=== PATIENT | male | born 1960 | race Caucasian/White ===

== ENCOUNTER → 2016-11-03 | Outpatient (REF) | payer OTHER ==
[2016-11-03 13:24] LABS: MEAN CORPUSCULAR HEMOGLOBIN 33.9 pg (27.0-33.0); MEAN CORPUSCULAR HGB CONC 35.5 g/dl (32.0-36.5); MEAN CORPUSCULAR VOLUME 95.6 fl (80.0-96.0); RED CELL DISTRIBUTION WIDTH 12.8 % (11.5-14.5); WHITE BLOOD COUNT 11.2 K/mm3 (4.0-10.0)
[2016-11-03 13:45] LABS: ALBUMIN 4.1 GM/DL (3.2-5.2); ALBUMIN/GLOBULIN RATIO 1.17 (1.00-1.93); ALKALINE PHOSPHATASE 76 U/L (45-117); ALT/SGPT 44 U/L (12-78); ANION GAP 8 MEQ/L (8-16); AST/SGOT 25 U/L (15-37); BILIRUBIN,TOTAL 0.6 MG/DL (0.2-1.0); BLOOD UREA NITROGEN 16 MG/DL (7-18); CARBON DIOXIDE LEVEL 26 MEQ/L (21-32); CHLORIDE LEVEL 104 MEQ/L (98-107); CHOLESTEROL LEVEL 132 MG/DL (<200); CREATININE FOR GFR 0.97 MG/DL (0.70-1.30); GLOMERULAR FILTRATION RATE > 60.0 (>56); GLUCOSE, FASTING 118 MG/DL (70-105); POTASSIUM SERUM 4.7 MEQ/L (3.5-5.1); SODIUM LEVEL 138 MEQ/L (136-145); TOTAL PROTEIN 7.6 GM/DL (6.4-8.2); TRIGLYCERIDES LEVEL 122 MG/DL (<150)
== END ==
LOC: M SFHCADAM 08:25
PROVIDERS: ATTEND Physician Assistant
DX: I10 Essential (primary) hypertension (principal); E11.65 Type 2 diabetes mellitus with hyperglycemia; E78.2 Mixed hyperlipidemia

== ENCOUNTER 2017-01-20 22:51 | Emergency (ER) | payer OTHER ==
[~2017-01-20] VITALS: Ht 177.8 cm; Wt 90.9 kg
[2017-01-20] MEDS ORDERED: LISI-538 (23:13)
[2017-01-20] MEDS ORDERED: DILT120T PO (23:13)
[2017-01-20] MEDS ORDERED: METF500T13 PO (23:13)
[2017-01-20] MEDS ORDERED: SIMV10TA2 PO (23:13)
[2017-01-20] MEDS ORDERED: ELIQ5TAB PO (23:13)
[2017-01-20 23:38] LABS: BASO # 0.1 K/mm3 (0.0-0.2); BASO % 0.8 % (0.0-1.0); EOS # 0.4 K/mm3 (0.0-0.50); EOS % 2.8 % (0.0-3.0); LARGE UNSTAINED CELL # 0.2 K/mm3 (0.0-0.4); LARGE UNSTAINED CELL % 1.7 % (0.0-4.0); LYMPH # 4.8 K/mm3 (1.5-4.5); LYMPH % 34.1 % (24.0-44.0); MEAN CORPUSCULAR HEMOGLOBIN 32.4 pg (27.0-33.0); MEAN CORPUSCULAR HGB CONC 34.9 g/dl (32.0-36.5); MEAN CORPUSCULAR VOLUME 92.8 fl (80.0-96.0); MONO # 0.7 K/mm3 (0.0-0.8); MONO % 5.3 % (0.0-5.0); NEUTROPHILS # 7.4 K/mm3 (1.8-7.7); NEUTROPHILS % 55.3 % (36.0-66.0); PLATELET COUNT, AUTOMATED 289 k/mm3 (150-450); RED CELL DISTRIBUTION WIDTH 12.7 % (11.5-14.5); WHITE BLOOD COUNT 13.3 K/mm3 (4.0-10.0)
[2017-01-21 00:05] LABS: ANION GAP 9 MEQ/L (8-16); BLOOD UREA NITROGEN 18 MG/DL (7-18); CARBON DIOXIDE LEVEL 26 MEQ/L (21-32); CHLORIDE LEVEL 106 MEQ/L (98-107); CREATININE FOR GFR 0.92 MG/DL (0.70-1.30); GLOMERULAR FILTRATION RATE > 60.0 (>56); GLUCOSE, FASTING 213 MG/DL (70-105); SODIUM LEVEL 141 MEQ/L (136-145); THYROXINE (T4) 10.5 UG/DL (4.5-12.0)
[2017-01-21 00:10] LABS: T UPTAKE 30 % (33-40)
[2017-01-21 00:33] VITALS: BP 138/97
[2017-01-21] MEDS ORDERED: LORazepam 2 MG/ML VIAL (J2060) IV STA (01:33)
[2017-01-21] MEDS ORDERED: DIGOXIN INJ 0.5 MG/2 ML AMP (J1160) IV STA (02:17)
[2017-01-21 03:41] VITALS: BP 108/59
--- NOTE | 2017-01-21 06:42 | ECGEPIP ---
Stationary ECG Study [facility] - ED Test Date: 2017-01-20 Pat Name: SANDRA GAY Department: Room: - Gender: M Charge Entry Specialist: ClarkB: 1960 Requested By: STACEY MARTINEZ Order Number: [id number] Reading MD: Teo Yousif Measurements Intervals [place] Rate: 137 P: [place]: 0 QRS: -51 QRSD: 115 T: 57 QT: 307 QTc: 464 Interpretive Statements ATRIAL FIBRILLATION WITH RAPID VENTRICULAR RESPONSE LEFT ANTERIOR FASCICULAR BLOCK LAD NONSPECIFIC ST T WAVE CHANGES CW 03/26/16 - RATE INCREASED RHYTHM CHANGE NONSPECIFIC ST T WAVE CHANGES CLINICAL CORRELATION Electronically Signed On 01-21-2017 6:42:11 EDT by Teo Yousif
--- NOTE | 2017-01-21 06:43 | ECGEPIP ---
Stationary ECG Study [facility] - ED Test Date: 2017-01-21 Pat Name: SANDRA GAY Department: Room: - Gender: M Crm Developer: sterling : 1960 Requested By: STACEY MARTINEZ Order Number: [id number] Reading MD: Teo Yousif Measurements Intervals [place] Rate: 59 P: 61 [place]: 170 QRS: -34 QRSD: 118 T: 54 QT: 394 QTc: 393 Interpretive Statements SINUS BRADYCARDIA WITH OCCASIONAL SUPRAVENTRICULAR PREMATURE COMPLEXES MARKED LEFT AXIS DEVIATION MODERATE INTRAVENTRICULAR CONDUCTION DELAY NONSPECIFIC ST T WAVE CHANGES CW 01/20/17 - RATE DECREASED NOW SINUS BRADYCARDIA Electronically Signed On 01-21-2017 6:42:45 EDT by Teo Yousif
== END 2017-01-21 03:57 | disposition home or self-care (01) ==
LOC: M ED 22:51
DX: I48.91 Unspecified atrial fibrillation (principal); I10 Essential (primary) hypertension; E11.9 Type 2 diabetes mellitus without complications; E78.5 Hyperlipidemia, unspecified; F17.200 Nicotine dependence, unspecified, uncomplicated; Z79.01 Long term (current) use of anticoagulants; Z79.899 Other long term (current) drug therapy
CPT/HCPCS: 36415; 80048; 82550; 82553; 84436; 84443; 84479; 85025; 93000; 96374; 96375; 99284; J1160; J2060

== ENCOUNTER 2017-01-23 11:09 | Emergency (ER) | payer OTHER ==
[~2017-01-23] VITALS: Ht 177.8 cm; Wt 89.6 kg
[~2017-01-23 11:09] MED LIST: DILT120T PO; ELIQ5TAB PO; LISI-538; METF500T13 PO; SIMV10TA2 PO
[2017-01-23 11:10] VITALS: BP 127/75
[2017-01-23 11:54] LABS: MEAN CORPUSCULAR HEMOGLOBIN 32.5 pg (27.0-33.0); MEAN CORPUSCULAR HGB CONC 35.3 g/dl (32.0-36.5); MEAN CORPUSCULAR VOLUME 92.2 fl (80.0-96.0); RED CELL DISTRIBUTION WIDTH 12.4 % (11.5-14.5); WHITE BLOOD COUNT 11.1 K/mm3 (4.0-10.0)
[2017-01-23 12:38] LABS: ANION GAP 6 MEQ/L (8-16); BLOOD UREA NITROGEN 16 MG/DL (7-18); CALCIUM LEVEL 8.7 MG/DL (8.5-10.1); CARBON DIOXIDE LEVEL 27 MEQ/L (21-32); CHLORIDE LEVEL 106 MEQ/L (98-107); GLOMERULAR FILTRATION RATE > 60.0 (>56); GLUCOSE, FASTING 185 MG/DL (70-105); MAGNESIUM LEVEL 2.1 MG/DL (1.8-2.4); POTASSIUM SERUM 4.4 MEQ/L (3.5-5.1); SODIUM LEVEL 139 MEQ/L (136-145); T UPTAKE 34 % (33-40)
--- NOTE | 2017-01-23 21:20 | ECGEPIP ---
Stationary ECG Study [facility] - ED Test Date: 2017-01-23 Pat Name: SANDRA GAY Department: Room: - Gender: M Chute Man: mandeep : 1960 Requested By: Marie Barrientos Order Number: [id number] Reading MD: Marie Barrientos Measurements Intervals [place] Rate: 57 P: 63 MN: 174 QRS: -24 QRSD: 117 T: 57 QT: 438 QTc: 430 Interpretive Statements SINUS BRADYCARDIA BORDERLINE LEFT AXIS DEVIATION MODERATE INTRAVENTRICULAR CONDUCTION DELAY NONSPECIFIC T-WAVE ABNORMALITY Electronically Signed On 01-23-2017 21:20:33 EDT by Marie Barrientos
== END 2017-01-23 13:26 | disposition left against medical advice (07) ==
LOC: M ED 11:09
DX: I48.0 Paroxysmal atrial fibrillation (principal); R00.1 Bradycardia, unspecified; E11.9 Type 2 diabetes mellitus without complications; F17.210 Nicotine dependence, cigarettes, uncomplicated

== ENCOUNTER 2017-02-03 21:24 | Observation (INO) | payer OTHER ==
[~2017-02-03] VITALS: Ht 177.8 cm; Wt 89.8 kg
[~2017-02-03 21:24] MED LIST changes: +FLECAINIDE 50MG TABLET PO SCH; +LISINOPRIL 10 MG TAB PO SCH; +SIMVASTATIN 10 MG TAB PO SCH
[2017-02-03] MEDS ORDERED: FLEC50TA PO (21:35)
[2017-02-03] MEDS ORDERED: NS 1,000 ML IV ONE (22:00)
[2017-02-03 22:14] LABS: BASO # 0.1 K/mm3 (0.0-0.2); BASO % 0.6 % (0.0-1.0); EOS # 0.4 K/mm3 (0.0-0.50); EOS % 3.1 % (0.0-3.0); LARGE UNSTAINED CELL # 0.3 K/mm3 (0.0-0.4); LYMPH # 4.6 K/mm3 (1.5-4.5); LYMPH % 32.5 % (24.0-44.0); MEAN CORPUSCULAR HEMOGLOBIN 32.8 pg (27.0-33.0); MEAN CORPUSCULAR HGB CONC 35.6 g/dl (32.0-36.5); MEAN CORPUSCULAR VOLUME 92.1 fl (80.0-96.0); MONO # 0.8 K/mm3 (0.0-0.8); MONO % 5.4 % (0.0-5.0); NEUTROPHILS % 56.4 % (36.0-66.0); PLATELET COUNT, AUTOMATED 270 k/mm3 (150-450); RED CELL DISTRIBUTION WIDTH 12.4 % (11.5-14.5); WHITE BLOOD COUNT 14.2 K/mm3 (4.0-10.0)
[2017-02-03 22:20] LABS: INR 1.03
[2017-02-03 22:41] LABS: ALBUMIN 3.8 GM/DL (3.2-5.2); ALBUMIN/GLOBULIN RATIO 1.19 (1.00-1.93); ALKALINE PHOSPHATASE 79 U/L (45-117); ALT/SGPT 35 U/L (12-78); ANION GAP 11 MEQ/L (8-16); AST/SGOT 20 U/L (15-37); BILIRUBIN,DIRECT 0.1 MG/DL (0.0-0.2); BILIRUBIN,TOTAL 0.4 MG/DL (0.2-1.0); BLOOD UREA NITROGEN 16 MG/DL (7-18); CALCIUM LEVEL 8.5 MG/DL (8.5-10.1); CARBON DIOXIDE LEVEL 24 MEQ/L (21-32); CHLORIDE LEVEL 107 MEQ/L (98-107); CREATININE FOR GFR 0.89 MG/DL (0.70-1.30); GLOMERULAR FILTRATION RATE > 60.0 (>56); GLUCOSE, FASTING 177 MG/DL (70-105); POTASSIUM SERUM 3.8 MEQ/L (3.5-5.1); SODIUM LEVEL 142 MEQ/L (136-145)
[2017-02-03] MEDS ORDERED: NITROGLYCERIN 0.4 MG SUBL TABLET SL PRN (22:45)
[2017-02-03] MEDS ORDERED: FLECAINIDE 50MG TABLET PO ONE (23:00)
[2017-02-03] MEDS ORDERED: SUCRALFATE 1 GM TAB PO ONE (23:30)
[2017-02-03] MEDS ORDERED: VENL75CA47 PO (23:48)
[2017-02-03] MEDS ORDERED: LISI10TA4 PO (23:48)
[2017-02-04] MEDS ORDERED: GLUCAGON FOR INJ 1 MG VIAL (J1610) SC PRN (01:45)
[2017-02-04] MEDS ORDERED: DEXTROSE 50% 50 ML SYRINGE IV PRN (01:45)
[2017-02-04] MEDS ORDERED: GLUCOSE 4 GM CHEW TABLET PO PRN (01:45)
[2017-02-04 03:30] VITALS: BP 99/58
[2017-02-04 07:23] LABS: MEAN CORPUSCULAR HEMOGLOBIN 32.9 pg (27.0-33.0); MEAN CORPUSCULAR HGB CONC 35.8 g/dl (32.0-36.5); MEAN CORPUSCULAR VOLUME 91.9 fl (80.0-96.0); RED CELL DISTRIBUTION WIDTH 12.5 % (11.5-14.5); WHITE BLOOD COUNT 11.3 K/mm3 (4.0-10.0)
[2017-02-04] MEDS ORDERED: HumaLOG INSULIN (NovoLOG) PER UNIT SC SCH ×2 (07:30→21:00)
[2017-02-04 07:34] LABS: ANION GAP 10 MEQ/L (8-16); BLOOD UREA NITROGEN 12 MG/DL (7-18); CALCIUM LEVEL 8.2 MG/DL (8.5-10.1); CARBON DIOXIDE LEVEL 24 MEQ/L (21-32); CHLORIDE LEVEL 110 MEQ/L (98-107); CREATININE FOR GFR 0.82 MG/DL (0.70-1.30); GLOMERULAR FILTRATION RATE > 60.0 (>56); GLUCOSE, FASTING 143 MG/DL (70-105); MAGNESIUM LEVEL 2.3 MG/DL (1.8-2.4); POTASSIUM SERUM 4.1 MEQ/L (3.5-5.1); SODIUM LEVEL 144 MEQ/L (136-145)
[2017-02-04 08:17] VITALS: BP 121/69
[2017-02-04] MEDS ORDERED: PANTOPRAZOLE 40MG TAB (PROTONIX) PO SCH (09:00)
[2017-02-04] MEDS ORDERED: APIXABAN 5 MG TAB (ELIQUIS) PO SCH (09:00)
[2017-02-04] MEDS ORDERED: FLECAINIDE 50MG TABLET PO SCH (09:00)
[2017-02-04] MEDS ORDERED: VENLAFAXINE **XR** 75MG CAPSULE PO SCH (09:00)
--- NOTE | 2017-02-04 09:06 | REP ---
Clinical: chest pain. Comparison: 03/26/2016. Findings: The mediastinum and cardiac silhouette are stable and within normal limits for portable technique. The lung ingram are clear without acute consolidation, effusion, or pneumothorax. Skeletal structures are intact. Impression: No acute cardiopulmonary process appreciated. Signed by Tiago Pacheco MD 02/04/2017 07:53 A
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
[2017-02-04 09:13] VITALS: BP 121/69
--- NOTE | 2017-02-04 10:22 | ECGEPIP ---
Stationary ECG Study [facility] - ED Test Date: 2017-02-03 Pat Name: SANDRA GAY Department: Room: [place] [address] Gender: M State Game Protector: ClarkB: 1960 Requested By: KATRINA Gannon Order Number: [id number] Reading MD: Marie Barrientos Measurements Intervals [place] Rate: 140 P: [place]: 0 QRS: -51 QRSD: 121 T: 66 QT: 317 QTc: 484 Interpretive Statements ATRIAL FIBRILLATION WITH RAPID VENTRICULAR RESPONSE LEFT ANTERIOR FASCICULAR BLOCK MODERATE ST DEPRESSION PRIOR SINUS 57 01/23/17 Electronically Signed On 02-04-2017 10:22:30 EDT by Marie Barrientos
[2017-02-04] MEDS ORDERED: FLECAINIDE 50MG TABLET PO ONE (10:30)
[2017-02-04] MEDS ORDERED: FLEC50TA PO (10:40)
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
--- NOTE | 2017-02-04 11:31 | DS.PDOC ---
Discharge Summary General Date of Admission Feb 03, 2017 at 21:25 Date of Discharge 02/04/2017 Discharge Summary DISCHARGE SUMMARY DATE OF ADMISSION: 02/03/2017 DATE OF DISCHARGE: 02/04/2017 PRIMARY CARE PHYSICIAN: MERVIN Ariza DISCHARGE DIAGNOS(E)S: A. fib with RVR HPI & HOSPITAL COURSE: 56-year-old male with diabetes mellitus, paroxysmal A. fib, GERD who presented to the emergency department with uncontrolled heart rate. There is some confusion about if the patient did or did not stop his flecainide, but either way, he was not taking his flecainide appropriately. Per the H&P, the patient had not taken it yesterday after reading the side effects and becoming concerned. However, the report that he gave Dr. Orellana, was that he was still taking his old dose of flecainide 50 mg by mouth twice a day, but had failed to increase it to 100 mg by mouth twice a day as he had been instructed by Dr. Dubon one week ago. Upon admission, he was restarted on his home medications. Initially, this morning, the patient was frustrated with the fact that he continued to have episodes of A. fib, and felt like the doctors in this area were not managing him appropriately. He expressed a desire to leave [place] and go to [place] for care, and told me that he understood that if his heart rhythm would become abnormal again, there is the possibility that he would not be able to reach medical care in time and could . However, he later changed his mind and decided to wait for the cup trimming machine operator to evaluate him. Dr. Orellana evaluated him, and felt like since he had converted to sinus rhythm overnight, he was safe to go home, and continue taking his regular medicines, including the increased dose of flecainide that he was instructed to start one week ago. The patient also evidently has an event recorder at home, which has not been turned in yet. Dr. Orellana has asked him to turn it into the office tomorrow. Dr. Orellana plans to speak with Dr. Dubon about possibly referring the patient to electrophysiology for ablation but feels that at this time the patient is safe to be discharged home. PHYSICAL EXAMINATION ON DISCHARGE: VITAL SIGNS: Vital Signs Date Time Temp Pulse Resp B/P (MAP) Pulse Ox O2 Delivery O2 Flow Rate FiO2 02/04/17 09:13 66 121/69 02/04/17 08:17 96.8 18 97 Room Air GENERAL: Awake, alert, no acute distress CARDIOVASCULAR EXAMINATION: Regular rate and rhythm, with no rubs, gallops, or murmur. RESPIRATORY EXAMINATION: Clear to auscultation bilaterally with no wheezes, rales, or rhonchi. ABDOMINAL EXAMINATION: Soft, nontender, nondistended. Bowel sounds present. EXTREMITIES: No clubbing or edema noted. 2+ pulses in the radial bilaterally. NEURO: AAOx3, normal speech DISPOSITION: Home DISCHARGE INSTRUCTIONS: Follow-up with Dr. Dubon in 1-2 weeks Follow-up PCP within the week. Return the event recorder to Dr. Dubon's office tomorrow. If symptoms return, or if you experience worsening of your symptoms, please call your doctor or return to the emergency department. ITEMS THAT NEED OUTPATIENT FOLLOWUP: None Patient was seen and examined by me on the day of discharge, and I spent a total time of greater than 30 minutes on this discharge between evaluating the patient, discussing the patient's options including leaving AMA with the patient , and discussing the case with Dr. Orellana. Vital Signs/I&Os Vital Signs Date Time Temp Pulse Resp B/P (MAP) Pulse Ox O2 Delivery O2 Flow Rate FiO2 02/04/17 09:13 66 121/69 02/04/17 08:17 96.8 18 97 Room Air I&O- Last 24 Hours up to 6 AM 02/04/17 05:59 Intake Total 1000 ml Output Total 2100 ml Balance -1100 ml Laboratory Data Labs 24H Laboratory Tests 2 02/03/17 22:01: White Blood Count 14.2H, Red Blood Count 4.52, Hemoglobin 14.8, Hematocrit 41.6L , Mean Corpuscular Volume 92.1, Mean Corpuscular Hemoglobin 32.8, Mean Corpuscular Hemoglobin Concent 35.6, Red Cell Distribution Width 12.4, Platelet Count 270, Neutrophils (%) (Auto) 56.4, Lymphocytes (%) (Auto) 32.5, Monocytes ( %) (Auto) 5.4H, Eosinophils (%) (Auto) 3.1H, Basophils (%) (Auto) 0.6, Neutrophils # (Auto) 8.0H, Lymphocytes # (Auto) 4.6H, Monocytes # (Auto) 0.8, Eosinophils # (Auto) 0.4, Basophils # (Auto) 0.1, Large Unclassified Cells % 2.0 , Large Unclassified Cells # 0.3, Prothrombin Time 13.6, Prothromb Time International Ratio 1.03, Activated Partial Thromboplast Time 34.0, Anion Gap 11 , Glomerular Filtration Rate > 60.0, Calcium Level 8.5, Aspartate Amino Transf ( AST/SGOT) 20, Alanine Aminotransferase (ALT/SGPT) 35, Alkaline Phosphatase 79, Total Bilirubin 0.4, Direct Bilirubin 0.1, Total Creatine Kinase 205, Creatine Kinase MB 2.9, Creatine Kinase MB Relative Index 1.41, Troponin I < 0.02, B- Type Natriuretic Peptide 28.2, Total Protein 7.0, Albumin 3.8, Albumin/Globulin Ratio 1.19, Lipase 149 02/04/17 07:05: Anion Gap 10, Glomerular Filtration Rate > 60.0, Calcium Level 8.2L, Total Creatine Kinase 148, Creatine Kinase MB 2.3, Creatine Kinase MB Relative Index 1.55, Troponin I < 0.02, Estimated Mean Plasma Glucose 157H, Hemoglobin A1c 7.1H , Blood Urea Nitrogen 12, Creatinine 0.82, Sodium Level 144, Potassium Level 4.1 , Chloride Level 110H, Carbon Dioxide Level 24, Magnesium Level 2.3 CBC/BMP Laboratory Tests 02/03/17 22:01 Red Blood Count 4.52, Mean Corpuscular Volume 92.1, Mean Corpuscular Hemoglobin 32.8, Mean Corpuscular Hemoglobin Concent 35.6, Red Cell Distribution Width 12.4 , Neutrophils (%) (Auto) 56.4, Lymphocytes (%) (Auto) 32.5, Monocytes (%) (Auto ) 5.4 H, Eosinophils (%) (Auto) 3.1 H, Basophils (%) (Auto) 0.6, Neutrophils # ( Auto) 8.0 H, Lymphocytes # (Auto) 4.6 H, Monocytes # (Auto) 0.8, Eosinophils # ( Auto) 0.4, Basophils # (Auto) 0.1 02/04/17 07:05 Red Blood Count 4.64, Mean Corpuscular Volume 91.9, Mean Corpuscular Hemoglobin 32.9, Mean Corpuscular Hemoglobin Concent 35.8, Red Cell Distribution Width 12.5 , Calcium Level 8.2 L, Total Creatine Kinase 148 Discharge Medications Scheduled Apixaban Base (Eliquis) 5 Mg Tab, 5 MG PO BID, (Reported) Diltiazem HCl (Diltiazem HCl) 120 Mg Tab, 120 MG PO BID, (Reported) Flecainide Acetate (Flecainide Acetate) 50 Mg Tab, 100 MG PO BID Lisinopril (Lisinopril) 10 Mg Tab, 10 MG PO QHS, (Reported) Metformin Hydrochloride (Metformin HCl) 500 Mg Tab, 500 MG PO BID, (Reported) Simvastatin (Simvastatin) 10 Mg Tab, 10 MG PO QHS, (Reported) Venlafaxine HCl (Venlafaxine HCl ER) 75 Mg Capcr, 75 MG PO DAILY, (Reported) Allergies Coded Allergies: No Known Allergies (Unverified , 01/20/17) THERESE BOYD Feb 04, 2017 11:31
== END 2017-02-04 11:18 | disposition home or self-care (01) ==
LOC: M ED 21:24 → M ED INP 21:25
PROVIDERS: ADMIT Internal Medicine; ATTEND Hospitalist
DX: I48.0 Paroxysmal atrial fibrillation (principal); E11.9 Type 2 diabetes mellitus without complications; I10 Essential (primary) hypertension; K21.9 Gastro-esophageal reflux disease without esophagitis; F17.210 Nicotine dependence, cigarettes, uncomplicated; Z79.899 Other long term (current) drug therapy

== ENCOUNTER → 2017-04-25 | Outpatient (CLI) | payer OTHER ==
[~2017-04-25] MED LIST changes: +FLEC50TA PO; -FLECAINIDE 50MG TABLET PO SCH; +LISI10TA4 PO; -LISINOPRIL 10 MG TAB PO SCH; -SIMVASTATIN 10 MG TAB PO SCH; +VENL75CA47 PO
--- NOTE | 2017-04-27 14:43 | SLEEPHOME ---
DATE OF STUDY: 04/25/2017 ORDERED BY: Petra Luna Diagnostic home sleep testing was performed due to concern for the obstructive sleep apnea syndrome in this patient with a history of excessive somnolence and nonrestorative sleep who has comorbidities of atrial fibrillation and hypertension. For testing, a NOX-T3 respiratory monitoring device was used. Continuous record was made of pulse, oxygen saturation, air flow, chest and abdominal strain, and body position. 10 hours and 59 minutes of data were reviewed. There were 7 hours and 58 minutes marked as time in bed. During the interval marked time in bed, there were 75 respiratory events identified of 10 seconds in duration or greater for a respiratory event index of 9.4. The events were primarily obstructive. Baseline pulse rate 65. Pulse rate ranged 52 to 93. Baseline saturation of 89%. Lowest oxygen saturation 83%. Testing was performed in both the supine and nonsupine positions. IMPRESSION: Abnormal home sleep testing with repetitive respiratory events and oxygen desaturations to 83% with a respiratory event index of 9.4 is consistent with the obstructive sleep apnea syndrome. RECOMMENDATION: The patient should be encouraged to undergo formal sleep evaluation and in-laboratory pressure titration.
== END ==
LOC: M SLEEP HO 13:11
PROVIDERS: ATTEND Nurse Practitioner Adult Health
DX: G47.30 Sleep apnea, unspecified (principal)

== ENCOUNTER 2018-01-06 07:05 | Emergency (ER) | payer OTHER ==
[2018-01-06] MEDS ORDERED: NITROGLYCERIN 0.4 MG SUBL TABLET SL (07:45)
[2018-01-06 07:46] LABS: BASO # 0.1 10^3/uL (0.0-0.2); BASO % 0.7 % (0.0-1.0); EOS # 0.3 10^3/uL (0.0-0.50); EOS % 2.1 % (0.0-3.0); HEMATOCRIT 44.6 % (42.0-52.0); IMMATURE GRANULOCYTE % 0.4 % (0-3.0); LYMPH # 2.9 10^3/uL (1.5-4.5); MEAN CORPUSCULAR HEMOGLOBIN 31.8 pg (27.0-33.0); MEAN CORPUSCULAR HGB CONC 33.6 g/dl (32.0-36.5); MEAN CORPUSCULAR VOLUME 94.5 fl (80.0-96.0); MONO % 8.6 % (0.0-5.0); NEUTROPHILS # 7.8 10^3/uL (1.8-7.7); NEUTROPHILS % 64.2 % (36.0-66.0); PLATELET COUNT, AUTOMATED 245 10^3/uL (150-450); RED BLOOD COUNT 4.72 10^6/uL (4.30-6.10); RED CELL DISTRIBUTION WIDTH 12.7 % (11.5-14.5); WHITE BLOOD COUNT 12.1 10^3/uL (4.0-10.0)
[2018-01-06 07:57] LABS: INR 0.91; PROTHROMBIN TIME 12.4 SECONDS (12.1-14.4)
[2018-01-06 08:20] LABS: ANION GAP 7 MEQ/L (8-16); BLOOD UREA NITROGEN 13 MG/DL (7-18); CALCIUM LEVEL 8.3 MG/DL (8.5-10.1); CARBON DIOXIDE LEVEL 28 MEQ/L (21-32); CHLORIDE LEVEL 106 MEQ/L (98-107); CK-MB VALUE MASS 2.9 NG/ML (<3.6); CPK CREATINE PHOSPHOKINASE 177 U/L (39-308); CREATININE FOR GFR 0.94 MG/DL (0.70-1.30); GLOMERULAR FILTRATION RATE > 60.0 (>56); GLUCOSE, FASTING 153 MG/DL (70-100); MB/CK RELATIVE INDEX 1.63 (< OR =4); POTASSIUM SERUM 4.1 MEQ/L (3.5-5.1); SODIUM LEVEL 141 MEQ/L (136-145); TROPONIN I < 0.02 NG/ML (< 0.10)
[2018-01-06] MEDS ORDERED: MORPHINE 2 MG/ML 1ML SYRINGE (J2270) As Ordered (08:27)
[2018-01-06] MEDS: FLECAINIDE 50MG TABLET PO (08:36)
[2018-01-06] MEDS: MORPHINE 2 MG/ML 1ML SYRINGE (J2270) IV ×2 (08:39→09:10)
[2018-01-06] MEDS: ONDANSETRON 4MG/2ML VIAL (J2405) IV (08:45)
[2018-01-06] MEDS: NS 1,000 ML IV (09:14)
[2018-01-06] MEDS ORDERED: ISOVUE-370 76% 100ML VIAL (Q9967) As Ordered (09:15)
[2018-01-06] MEDS: GI COCKTAIL 50ML BTL(HYOSCYAMINE/MAALOX/LIDOCAINE VISCOUS)(1:3:1) PO (11:30)
[2018-01-06] MEDS: APIXABAN 5 MG TAB (ELIQUIS) PO (11:45)
[2018-01-06 13:21] LABS: CK-MB VALUE MASS 2.9 NG/ML (<3.6); CPK CREATINE PHOSPHOKINASE 156 U/L (39-308); MB/CK RELATIVE INDEX 1.85 (< OR =4); TROPONIN I < 0.02 NG/ML (< 0.10)
[2018-01-06 13:41] LABS: BEDSIDE GLUCOSE 166 MG/DL (70-105)
== END 2018-01-06 14:36 | disposition home or self-care (01) ==
LOC: M ED 07:05
DX: M54.2 Cervicalgia (principal); R07.9 Chest pain, unspecified; I44.4 Left anterior fascicular block; I48.91 Unspecified atrial fibrillation; I10 Essential (primary) hypertension; E78.5 Hyperlipidemia, unspecified; K21.9 Gastro-esophageal reflux disease without esophagitis; F41.9 Anxiety disorder, unspecified; Z98.61 Coronary angioplasty status; Z79.01 Long term (current) use of anticoagulants; Z79.899 Other long term (current) drug therapy
CPT/HCPCS: J2405

== ENCOUNTER → 2018-03-31 | Outpatient (REF) | payer OTHER ==
[2018-03-31 18:02] LABS: HEMATOCRIT 47.4 % (42.0-52.0); HEMOGLOBIN 15.1 g/dl (13.5-17.5); MEAN CORPUSCULAR HEMOGLOBIN 31.1 pg (27.0-33.0); MEAN CORPUSCULAR HGB CONC 31.9 g/dl (32.0-36.5); MEAN CORPUSCULAR VOLUME 97.5 fl (80.0-96.0); RED BLOOD COUNT 4.86 10^6/uL (4.30-6.10)
[2018-03-31 18:03] LABS: BLOOD UREA NITROGEN 14 MG/DL (7-18); CHLORIDE LEVEL 101 MEQ/L (98-107); CREATININE FOR GFR 0.99 MG/DL (0.70-1.30); GLOMERULAR FILTRATION RATE > 60.0 (>56); GLUCOSE, FASTING 192 MG/DL (70-100); PLATELET COUNT, AUTOMATED 241 10^3/uL (150-450); POTASSIUM SERUM 5.2 MEQ/L (3.5-5.1); SODIUM LEVEL 137 MEQ/L (136-145)
[2018-03-31 18:04] LABS: ANION GAP 7 MEQ/L (8-16); CALCIUM LEVEL 8.7 MG/DL (8.5-10.1); CARBON DIOXIDE LEVEL 29 MEQ/L (21-32)
== END ==
LOC: M LABDRWAD 13:21
DX: I48.1 Persistent atrial fibrillation (principal)

== ENCOUNTER → 2018-03-31 | Outpatient (REF) | payer OTHER ==
[2018-03-31 17:27] LABS: BASO # 0.1 10^3/uL (0.0-0.2); BASO % 0.7 % (0.0-1.0); EOS # 0.3 10^3/uL (0.0-0.50); EOS % 2.7 % (0.0-3.0); HEMATOCRIT 47.4 % (42.0-52.0); HEMOGLOBIN 15.1 g/dl (13.5-17.5); IMMATURE GRANULOCYTE % 0.2 % (0-3.0); LYMPH # 3.7 10^3/uL (1.5-4.5); LYMPH % 30.5 % (24.0-44.0); MEAN CORPUSCULAR HEMOGLOBIN 31.1 pg (27.0-33.0); MEAN CORPUSCULAR HGB CONC 31.9 g/dl (32.0-36.5); MEAN CORPUSCULAR VOLUME 97.5 fl (80.0-96.0); MONO # 1.1 10^3/uL (0.0-0.8); MONO % 8.9 % (0.0-5.0); NEUTROPHILS # 6.8 10^3/uL (1.8-7.7); PLATELET COUNT, AUTOMATED 241 10^3/uL (150-450); RED BLOOD COUNT 4.86 10^6/uL (4.30-6.10)
[2018-03-31 17:46] LABS: ALBUMIN 3.9 GM/DL (3.2-5.2); ALBUMIN/GLOBULIN RATIO 1.18 (1.00-1.93); ALKALINE PHOSPHATASE 81 U/L (45-117); ALT/SGPT 49 U/L (12-78); ANION GAP 7 MEQ/L (8-16); AST/SGOT 27 U/L (7-37); BILIRUBIN,TOTAL 0.4 MG/DL (0.2-1.0); BLOOD UREA NITROGEN 14 MG/DL (7-18); CALCIUM LEVEL 8.7 MG/DL (8.5-10.1); CARBON DIOXIDE LEVEL 29 MEQ/L (21-32); CHLORIDE LEVEL 101 MEQ/L (98-107); CHOLESTEROL LEVEL 148 MG/DL (<200); CHOLESTEROL RISK RATIO 3.894 (<5); CREATININE FOR GFR 0.99 MG/DL (0.70-1.30); FREE T4 1.05 NG/DL (0.76-1.46); GLOMERULAR FILTRATION RATE > 60.0 (>56); GLUCOSE, FASTING 192 MG/DL (70-100); HDL CHOLESTEROL 38 MG/DL (>40); LDL CHOLESTEROL 70 MG/DL (<100); NON-HDL-C 110 MG/DL; POTASSIUM SERUM 5.2 MEQ/L (3.5-5.1); SODIUM LEVEL 137 MEQ/L (136-145); TOTAL PROTEIN 7.2 GM/DL (6.4-8.2); TRIGLYCERIDES LEVEL 199 MG/DL (<150)
[2018-03-31 17:49] LABS: ESTIMATED AVERAGE GLUCOSE 177 MG/DL (60-110); HEMOGLOBIN A1c 7.8 %
[2018-03-31 18:17] LABS: MALB URINE SIEMENS 27.9 MG/L
[2018-03-31 18:19] LABS: MAU/CREAT RATIO 21.6 MCG/MG (0.0-30.0)
== END ==
LOC: M SFHCADAM 08:34
DX: I48.0 Paroxysmal atrial fibrillation (principal); E11.65 Type 2 diabetes mellitus with hyperglycemia; E78.2 Mixed hyperlipidemia; I10 Essential (primary) hypertension

== ENCOUNTER → 2018-04-23 | Outpatient (REF) | payer OTHER | LOC: M ADAMS 14:17 | DX: M51.36 Other intervertebral disc degeneration, lumbar region (principal) | CPT/HCPCS: 72110 ==

== ENCOUNTER → 2018-05-08 | Outpatient (CLI) | payer OTHER ==
[~2018-05-08] MED LIST changes: +FLEC50HA PO; -FLEC50TA PO
--- NOTE | 2018-05-08 19:55 | REP ---
PET/CT: History: 15 mm noncalcified pulmonary nodule in the right lower lobe and 6 mm noncalcified pulmonary nodule in the left lower lobe. Comparisons: Comparison CT study done at [facility] dated April 05, 2018. TECHNIQUE: 1 hour 7 minutes following the intravenous injection of a 8.0 mCi dose of F-18 FDG, three-dimensional PET scintigraphy is acquired from the skull base to the proximal thighs. Triplanar noncontrast CT scanning is acquired through the same anatomic range for attenuation correction, and image registration with scan parameters optimized to minimize radiation exposure to the patient. PET scintigraphy and CT datasets were fused and displayed on a workstation with multiplanar and projection display capability. PET/CT Findings: There is discernible, just barely hypermetabolic uptake in the right lower lobe pulmonary nodule, maximum standard uptake value is 2.0 in this nodule. The left lower lobe pulmonary nodule does not show hypermetabolic uptake although it is quite small. Maximum standard uptake value is 1.2. No other abnormal hypermetabolic uptake is seen in the chest. Head and neck soft tissues are unremarkable. In the abdomen and pelvis, normal hepatic, splenic, gastrointestinal, and genitourinary FDG accumulation is seen. No other abnormal hypermetabolic uptake is seen. Impression: The 18 mm right lower lobe pulmonary nodule shows low level FDG accumulation which is just barely hypermetabolic, SUV 2.0. Malignancy cannot be excluded. No abnormal uptake is seen on the left or elsewhere. Electronically Signed by Samuel Swanson MD 05/08/2018 08:48 P
== END ==
LOC: M PLARAD 12:00
PROVIDERS: ATTEND Internal Medicine Pulmonary Disease
DX: R91.8 Other nonspecific abnormal finding of lung field (principal)
CPT/HCPCS: 78815; A9552

== ENCOUNTER → 2018-06-12 | Outpatient (REF) | payer OTHER ==
[2018-06-12 13:32] LABS: INR 0.93; PROTHROMBIN TIME 12.6 SECONDS (12.1-14.4)
[2018-06-12 13:33] LABS: PARTIAL THROMBOPLASTIN TIME 32.8 SECONDS (25.4-37.6)
== END ==
LOC: M LABDRWAD 12:10
PROVIDERS: ATTEND Internal Medicine Pulmonary Disease
DX: R91.8 Other nonspecific abnormal finding of lung field (principal); Z01.812 Encounter for preprocedural laboratory examination

== ENCOUNTER → 2018-06-13 | Outpatient (CLI) | payer OTHER ==
[~2018-06-13] MED LIST changes: +LIDOCAINE 1% MDV 20ML VIAL As Ordered ONE; +MIDAZOLAM INJ 2 MG/2 ML VIAL (J2250) As Ordered ONE
--- NOTE | 2018-06-13 15:40 | REP ---
Chest x-ray: AP view: History: Post biopsy chest x-ray. Comparison study January 06, 2018. Findings: There is a post biopsy right sided pneumothorax approximately 25%. The lungs are otherwise clear. No mediastinal shift. Pleural angles are sharp. Oxygen delivery tubing is seen. Impression: 25% post biopsy right sided pneumothorax. Electronically Signed by Samuel Swanson MD 06/13/2018 05:24 P
--- NOTE | 2018-06-13 16:05 | REP ---
Follow-up chest x-ray: Single PA view. History: Followup pneumothorax. Findings: There is a persistent small right-sided pneumothorax approximately 25%, unchanged from the film done approximate 2 hours earlier. No new finding. Impression: Stable small right-sided pneumothorax approximately 25%. Findings were discussed with Dr. Whitfield at the time of this interpretation. Electronically Signed by Samuel Swanson MD 06/13/2018 05:26 P
--- NOTE | 2018-06-14 16:32 | REP ---
CT-GUIDED RIGHT LOWER LOBE LUNG BIOPSY The procedure was performed under the direct supervision of Dr. Swanson. Patient has a history of a 1.8 cm right lower lobe pulmonary nodule which shows low-level FDG accumulation on a previous PET scan dated 05/08/2018. The risks and benefits of the procedure were explained to the patient and informed consent was obtained. The right lower lobe lung nodule was localized using CT guidance. The skin was prepped and draped in a sterile fashion. 1% lidocaine was used as a local anesthetic. Using CT guidance a 19/20 gauge coaxial needle biopsy system was inserted and advanced into the nodule. One core biopsy sample was obtained and sent to lab. A second biopsy was attempted however the biopsy tray likely inserted and S5. Another sample was not able to be obtained. Follow-up CT images demonstrate a right pneumothorax. The patient was placed on 2 liters of oxygen via nasal cannula. The patient states his pain was at 4 out of 10. Chest x-ray performed immediately after the procedure demonstrates a 25% right pneumothorax. A chest x-ray performed 2 hours later shows a stable small right-sided pneumothorax approximate 25%. Dr. Whitfield was made aware of these findings at the time of the procedure. The patient will follow-up with Dr. Whitfield. Reviewed by HECTOR Castellon 06/14/2018 03:43 P Electronically Signed by Samuel Swanson MD 06/14/2018 04:23 P
== END ==
LOC: M RADPRO 11:22
PROVIDERS: ATTEND Internal Medicine Pulmonary Disease
DX: J98.4 Other disorders of lung (principal); J95.811 Postprocedural pneumothorax; Z79.01 Long term (current) use of anticoagulants; Z79.899 Other long term (current) drug therapy; Z79.84 Long term (current) use of oral hypoglycemic drugs
CPT/HCPCS: 32405; 77012; 88305; J2250

== ENCOUNTER → 2018-06-17 | Outpatient (CLI) | payer OTHER ==
[~2018-06-17] MED LIST changes: -LIDOCAINE 1% MDV 20ML VIAL As Ordered ONE; -MIDAZOLAM INJ 2 MG/2 ML VIAL (J2250) As Ordered ONE
--- NOTE | 2018-06-17 11:55 | REP ---
Clinical: Postoperative pneumothorax for reevaluation . Comparison: 06/13/2018 . Technique: PA and lateral. Findings: A small right apical pneumothorax of approximately 15% is again identified but appears decreased from prior examination. The mediastinum and cardiac silhouette are normal. The lung ingram are stable. The skeletal structures are intact and normal. Impression: 1. Right apical pneumothorax of approximately 15% mildly decreased when compared to prior examination. Electronically Signed by Tiago Pacheco MD 06/17/2018 11:46 A
== END ==
LOC: M ADAMS 11:35
PROVIDERS: ATTEND Internal Medicine Pulmonary Disease
DX: R91.8 Other nonspecific abnormal finding of lung field (principal); J95.811 Postprocedural pneumothorax

== ENCOUNTER → 2018-07-23 | Outpatient (REF) | payer OTHER ==
[2018-07-23 20:36] LABS: HEMOGLOBIN A1c 7.5 %
[2018-07-23 20:39] LABS: ALBUMIN 4.1 GM/DL (3.2-5.2); ALT/SGPT 44 U/L (12-78); BILIRUBIN,TOTAL 0.3 MG/DL (0.2-1.0); BLOOD UREA NITROGEN 16 MG/DL (7-18); CALCIUM LEVEL 9.2 MG/DL (8.5-10.1); CARBON DIOXIDE LEVEL 29 MEQ/L (21-32); CHLORIDE LEVEL 103 MEQ/L (98-107); CREATININE FOR GFR 1.14 MG/DL (0.70-1.30); GLOMERULAR FILTRATION RATE > 60.0 (>56); GLUCOSE, FASTING 149 MG/DL (70-100); POTASSIUM SERUM 4.2 MEQ/L (3.5-5.1); SODIUM LEVEL 139 MEQ/L (136-145); TOTAL PROTEIN 7.5 GM/DL (6.4-8.2)
== END ==
LOC: M SFHCADAM 15:27
PROVIDERS: ATTEND Physician Assistant Medical
DX: E78.2 Mixed hyperlipidemia (principal); E11.65 Type 2 diabetes mellitus with hyperglycemia

== ENCOUNTER → 2018-07-23 | Outpatient (CLI) | payer OTHER ==
--- NOTE | 2018-07-24 04:36 | REP ---
Clinical: Follow up pneumothorax. Technique: PA and lateral views of the chest. Comparison: 06/17/2018. Findings: Previous right pneumothorax has resolved. Mediastinum and cardiac silhouette are normal. Lung ingram are clear and without acute consolidation, effusion, or pneumothorax. Skeletal structures are intact. Impression: No acute cardiopulmonary process appreciated. Previous right pneumothorax resolved. Electronically Signed by Tiago Pacheco MD 07/24/2018 04:27 A
== END ==
LOC: M ADAMS 15:48
PROVIDERS: ATTEND Internal Medicine Pulmonary Disease
DX: E78.2 Mixed hyperlipidemia (principal); E11.65 Type 2 diabetes mellitus with hyperglycemia; J95.811 Postprocedural pneumothorax

== ENCOUNTER → 2018-08-14 | Outpatient (CLI) | payer OTHER ==
--- NOTE | 2018-08-15 08:54 | REP ---
MRI LUMBAR SPINE WITHOUT CONTRAST: HISTORY: Back pain. Decreased signal intensity on T2-weighted images is present in the lumbar intervertebral discs. The discs are decreased in height. These findings are consistent with disc degeneration. A diffuse disc bulge is present at the L1-2 level. There is hypertrophy of the ligamenta flava and posterior articulating facets. These findings produce minimal central canal stenosis. The L1 nerves exit the neural foramina without compression. A diffuse disc bulge is present at the L2-3 level. There is hypertrophy of ligamenta flava and posterior articulating facets. These findings produce moderate central canal stenosis. The L2 nerves exit the neural foramina without compression. A diffuse disc bulge is present at the L3-4 level. There is hypertrophy of the ligamenta flava and posterior articulating facets. These findings produce severe central canal stenosis. The L3 nerves exit the neural foramina without compression. A diffuse disc bulge and small central disc protrusion are present at the L4-5 level. There is hypertrophy of the ligamenta flava and posterior articulating facets. These findings produce severe central canal stenosis. The L4 nerves exit the neural foramina without compression. A diffuse disc bulge and small central disc protrusion are present at the L5-S1 level. There is minimal compression at the thecal sac and S1 nerves as they exit the thecal sac. There is hypertrophy of the posterior articulating facets. There is compression of the L5 nerves in the neural foramina. The conus medullaris is normal in appearance terminating at the level of the T12-L1 intervertebral disc. A hemangioma is present in the L4 vertebral body. Increased signal intensity on T2-weighted images is present in the endplates of the L1-S1 vertebral bodies. This represents degenerative change. IMPRESSION: 1. Minimal central canal stenosis at the L1-2 level secondary to disc bulge, ligamentous and facet hypertrophy. 2. Moderate central canal stenosis at the L2-3 level secondary to disc bulge, ligamentous and facet hypertrophy. 3. Severe central canal stenosis at the L3-4 level secondary to disc bulge, ligamentous and facet hypertrophy. 4. Severe central canal stenosis at the L4-5 level secondary to disc bulge, disc protrusion, ligamentous and facet hypertrophy. 5. Diffuse disc bulge and small central disc protrusion at the L5-S1 level with minimal compression of the thecal sac and S1 nerves as they exit the thecal sac. There is compression of the L5 nerves in the neural foramina. Electronically Signed by Macario Woods MD 08/15/2018 09:00 A
== END ==
LOC: M RAD 15:52
PROVIDERS: ATTEND Physician Assistant Medical
DX: M51.26 Other intervertebral disc displacement, lumbar region (principal); M48.061 Spinal stenosis, lumbar region without neurogenic claudication

== ENCOUNTER 2018-09-02 12:14 | Day surgery (SDC) | payer OTHER ==
[~2018-09-02] VITALS: Ht 177.8 cm; Wt 93.9 kg
[~2018-09-02 12:14] MED LIST changes: +LR 1,000 ML IV ONE
[2018-09-02 12:49] LABS: HEMATOCRIT 45.3 % (42.0-52.0); HEMOGLOBIN 15.3 g/dl (13.5-17.5); MEAN CORPUSCULAR HEMOGLOBIN 31.4 pg (27.0-33.0); MEAN CORPUSCULAR HGB CONC 33.8 g/dl (32.0-36.5); PLATELET COUNT, AUTOMATED 260 10^3/uL (150-450); RED BLOOD COUNT 4.87 10^6/uL (4.30-6.10); WHITE BLOOD COUNT 12.1 10^3/uL (4.0-10.0)
[2018-09-02] MEDS ORDERED: TRAM50TA2 (13:01)
[2018-09-02] MEDS ORDERED: PROPOFOL 200 MG/20 ML VIAL As Ordered ONE ×2 (13:08→13:56)
[2018-09-02] MEDS ORDERED: dexameTHASONE 4 MG/ML 1ML VIAL (J1100) As Ordered ONE ×2 (13:08→13:56)
[2018-09-02] MEDS ORDERED: ONDANSETRON 4MG/2ML VIAL (J2405) As Ordered ONE ×2 (13:08→13:56)
[2018-09-02] MEDS ORDERED: ROCURONIUM BROMIDE 50 MG/5 ML VIAL As Ordered ONE ×2 (13:09→13:56)
[2018-09-02] MEDS ORDERED: LIDOCAINE 2% INJ 100 MG/5 ML SDV (FOR ANES.) As Ordered ONE ×2 (13:09→13:56)
[2018-09-02] MEDS ORDERED: fentaNYL 250 MCG/5 ML INJECTION (J3010) As Ordered ONE (13:12)
[2018-09-02] MEDS ORDERED: MIDAZOLAM INJ 2 MG/2 ML VIAL (J2250) As Ordered ONE (13:13)
[2018-09-02 13:16] LABS: BLOOD UREA NITROGEN 14 MG/DL (7-18); CALCIUM LEVEL 9.1 MG/DL (8.5-10.1); CARBON DIOXIDE LEVEL 29 MEQ/L (21-32); CHLORIDE LEVEL 104 MEQ/L (98-107); CREATININE FOR GFR 1.04 MG/DL (0.70-1.30); GLOMERULAR FILTRATION RATE > 60.0 (>56); GLUCOSE, FASTING 203 MG/DL (70-100); POTASSIUM SERUM 4.4 MEQ/L (3.5-5.1); SODIUM LEVEL 137 MEQ/L (136-145)
[2018-09-02] MEDS ORDERED: BUPIVACAINE/EPIN 0.25% 30 ML VIAL As Ordered ONE (13:16)
[2018-09-02] MEDS ORDERED: KETOROLAC 60 MG/2 ML VIAL (J1885) As Ordered ONE (13:57)
[2018-09-02] MEDS ORDERED: fentaNYL 100 MCG/2 ML INJECTION (J3010) As Ordered ONE (13:59)
[2018-09-02] MEDS ORDERED: SUGAMMADEX SODIUM 500 MG/5 ML VIAL (BRIDION) As Ordered ONE (15:18)
[2018-09-02] MEDS ORDERED: NORCO, ANEXSIA 5/325MG TABLET (HYDROcodone/ACETAMINOPHEN) PO PRN (15:30)
[2018-09-02] MEDS: fentaNYL 100 MCG/2 ML INJECTION (J3010) IV PRN ×4 (15:30→15:45)
[2018-09-02] MEDS ORDERED: HYDROMORPHONE HCL 0.5 MG/ 0.5 ML SYRINGE (J1170 PER 1) IV PRN (15:45)
[2018-09-02] MEDS ORDERED: LR 1,000 ML IV SCH (15:45)
[2018-09-02] MEDS ORDERED: ONDANSETRON 4MG/2ML VIAL (J2405) IV PRN (15:45)
[2018-09-02] MEDS ORDERED: PERCOCET 5MG/325MG TAB PO PRN (15:45)
--- NOTE | 2018-09-02 16:14 | RO ---
DATE OF PROCEDURE: 09/02/2018 PREOPERATIVE DIAGNOSIS: Ventral hernia POSTOP DIAGNOSIS: Incarcerated ventral hernia and an umbilical hernia. PROCEDURES: Laparoscopic repair of umbilical and incarcerated ventral hernia. SURGEON: Dr. Can Lora DYNAMITE RECLAIMER: None. ANESTHESIA: General. ESTIMATED BLOOD LOSS: 5 mL. COMPLICATIONS: None. INDICATIONS FOR PROCEDURE: The patient is a 58-year-old male who presents with a lump superior to his umbilicus in the midline. He was found have a ventral hernia. Recommendation was to proceed with laparoscopic, possible open repair. Risks and benefits of the procedure not limited to but including bleeding, infection, hernia formation, hernia recurrence, damage to surrounding structures and need for further surgery. He understood and signed consent. DESCRIPTION OF PROCEDURE: Patient brought back to operating room seven. After sufficient sedation, the abdomen was sterilely prepped and draped. Next, a time-out was done to confirm proper patient, proper procedure. Following that, a 5 mm incision was made in the left lower quadrant, Veress needle was inserted and the abdomen was insufflated to 15 mmHg. Next, the Veress needle was removed and a 5 mm Optiview port was used to gain access to the abdomen. Once the abdomen was entered, there was a ventral hernia identified containing incarcerated omentum. There was also a very small umbilical hernia identified. Next, another 5 mm port was placed in left lower quadrant and then using the Enseal, the peritoneum was incised superior to the ventral hernia. It was dissected circumferentially, and the ventral hernia was completely reduced along with the hernia sac. Once this was completed, the same process was done around the umbilical defect. Once both were freed up, a 12 cm round Parietex mesh was taken, had #0 Vicryl sutures placed at four corners. It was then placed inside of the abdomen. Transfascial sutures were brought out through the abdominal wall using four separate stab incisions. They were then tied in place. Two rows of SecureStrap tacks were then placed around the perimeter of the mesh to hold it tight to the fascia. Once this was all completed, the abdomen was desufflated. Skin incisions were closed with #4-0 Vicryl subcuticular sutures. The abdomen was cleaned and dried. Steri-Strips, 4 x 4, and tape were applied thus ending procedure. [facility] CENTERJagdeep
[2018-09-02 16:35] VITALS: BP 161/74
== END 2018-09-02 17:25 | disposition home or self-care (01) ==
LOC: M SDC 12:14
PROVIDERS: ATTEND Surgery
DX: K43.6 Other and unspecified ventral hernia with obstruction, without gangrene (principal); I10 Essential (primary) hypertension; I48.91 Unspecified atrial fibrillation; E11.9 Type 2 diabetes mellitus without complications; G47.30 Sleep apnea, unspecified; F41.9 Anxiety disorder, unspecified; F32.9 Major depressive disorder, single episode, unspecified; Z79.84 Long term (current) use of oral hypoglycemic drugs; Z79.899 Other long term (current) drug therapy; Z79.01 Long term (current) use of anticoagulants; F17.210 Nicotine dependence, cigarettes, uncomplicated
CPT/HCPCS: 36415; 49653; 80048; 85027; C1781; J0690; J1100; J1170; J2250; J2405; J3010

== ENCOUNTER → 2018-09-11 | Outpatient (REF) | payer OTHER ==
[~2018-09-11] MED LIST changes: -LR 1,000 ML IV ONE; +TRAM50TA2
[2018-09-11 14:15] LABS: INR 0.97
== END ==
LOC: M LABDRAW1 12:59
PROVIDERS: ATTEND Physician Assistant
DX: M48.061 Spinal stenosis, lumbar region without neurogenic claudication (principal)

== ENCOUNTER → 2018-11-12 | Outpatient (REF) | payer OTHER ==
[2018-11-12 12:58] LABS: BASO # 0.1 10^3/uL (0.0-0.2); BASO % 0.7 % (0.0-1.0); EOS # 0.2 10^3/uL (0.0-0.50); EOS % 1.6 % (0.0-3.0); HEMATOCRIT 43.4 % (42.0-52.0); HEMOGLOBIN 14.4 g/dl (13.5-17.5); LYMPH # 2.7 10^3/uL (1.5-4.5); LYMPH % 27.8 % (24.0-44.0); MEAN CORPUSCULAR HEMOGLOBIN 32.1 pg (27.0-33.0); MEAN CORPUSCULAR HGB CONC 33.2 g/dl (32.0-36.5); MEAN CORPUSCULAR VOLUME 96.9 fl (80.0-96.0); MONO # 0.8 10^3/uL (0.0-0.8); MONO % 8.1 % (0.0-5.0); NEUTROPHILS # 5.9 10^3/uL (1.8-7.7); NEUTROPHILS % 61.5 % (36.0-66.0); PLATELET COUNT, AUTOMATED 228 10^3/uL (150-450); RED BLOOD COUNT 4.48 10^6/uL (4.30-6.10); WHITE BLOOD COUNT 9.6 10^3/uL (4.0-10.0)
[2018-11-12 13:34] LABS: ALBUMIN 3.8 GM/DL (3.2-5.2); ALT/SGPT 50 U/L (12-78); BILIRUBIN,TOTAL 0.3 MG/DL (0.2-1.0); BLOOD UREA NITROGEN 12 MG/DL (7-18); CALCIUM LEVEL 8.9 MG/DL (8.5-10.1); CARBON DIOXIDE LEVEL 26 MEQ/L (21-32); CHLORIDE LEVEL 105 MEQ/L (98-107); CHOLESTEROL LEVEL 134 MG/DL (<200); CREATININE FOR GFR 0.97 MG/DL (0.70-1.30); GLOMERULAR FILTRATION RATE > 60.0 (>56); GLUCOSE, FASTING 186 MG/DL (70-100); HDL CHOLESTEROL 42 MG/DL (>40); LDL CHOLESTEROL 57 MG/DL (<100); NON-HDL-C 92 MG/DL; POTASSIUM SERUM 4.5 MEQ/L (3.5-5.1); SODIUM LEVEL 140 MEQ/L (136-145); TRIGLYCERIDES LEVEL 174 MG/DL (<150)
[2018-11-12 13:35] LABS: FOLATE 22.3 NG/ML (>5.4); VITAMIN B12 LEVEL 1151 PG/ML (247-911)
[2018-11-12 14:16] LABS: HEMOGLOBIN A1c 8.6 %
== END ==
LOC: M SFHCADAM 09:45
PROVIDERS: ATTEND Family Medicine
DX: E11.65 Type 2 diabetes mellitus with hyperglycemia (principal); G62.9 Polyneuropathy, unspecified; R68.82 Decreased libido

== ENCOUNTER → 2019-04-29 | Outpatient (CLI) | payer OTHER ==
[~2019-04-29] MED LIST changes: -SIMV10TA2 PO; +SIMV10TA21 PO
--- NOTE | 2019-04-29 15:20 | REP ---
CT chest without contrast: Low-dose screening exam. History: Nicotine dependence. Right lower lobe nodule previously biopsied, result necrotizing granuloma. Comparison chest CT study April 05, 2018. CT findings: There is a 1.6 x 1.5 cm noncalcified pulmonary nodule in the right lower lobe posteriorly on today's study page 82 of 118 series 201. This is felt to be unchanged and corresponds to the biopsied nodule. There is a stable somewhat linear nodule in the left lower lobe on page 689, 5 mm in greatest diameter. No other pulmonary nodule or mass lesion is seen. Impression: Lung RADS category 1 negative study. Stable 16 mm granulomatous nodule right lower lobe. Stable 5 mm nodule left lower lobe. Repeat screening exam recommended 1 year. Electronically Signed by Samuel Swanson MD 04/29/2019 05:20 P
== END ==
LOC: M RAD 12:47
PROVIDERS: ATTEND Internal Medicine Pulmonary Disease
DX: F17.218 Nicotine dependence, cigarettes, with other nicotine-induced disorders (principal)

== ENCOUNTER → 2019-09-10 | Outpatient (REF) | payer OTHER ==
[2019-09-10 12:53] LABS: BLOOD UREA NITROGEN 18 MG/DL (7-18); CALCIUM LEVEL 9.6 MG/DL (8.8-10.2); CARBON DIOXIDE LEVEL 28 MEQ/L (21-32); CHLORIDE LEVEL 102 MEQ/L (98-107); CREATININE FOR GFR 1.07 MG/DL (0.70-1.30); GLOMERULAR FILTRATION RATE > 60.0 (>49); GLUCOSE, FASTING 152 MG/DL (70-100); POTASSIUM SERUM 5.3 MEQ/L (3.5-5.1); SODIUM LEVEL 136 MEQ/L (136-145)
[2019-09-10 13:29] LABS: HEMOGLOBIN A1c 7.3 %
== END ==
LOC: M SFHCADAM 09:14
PROVIDERS: ATTEND Family Medicine
DX: E11.65 Type 2 diabetes mellitus with hyperglycemia (principal)

== ENCOUNTER → 2019-09-22 | Outpatient (REF) | payer OTHER ==
[2019-09-24 00:10] LABS: TESTOSTERONE FREE (DIRECT) 4.3 pg/mL (6.6-18.1)
== END ==
LOC: M SFHCADAM 10:10
PROVIDERS: ATTEND Family Medicine
DX: E34.9 Endocrine disorder, unspecified (principal)

== ENCOUNTER 2019-10-07 13:03 | Emergency (ER) | payer OTHER ==
[~2019-10-07] VITALS: Ht 177.8 cm; Wt 95.6 kg
[2019-10-07 13:03] VITALS: BP 143/68
[~2019-10-07 13:03] MED LIST changes: -ACET-908 PO; -GLIP5TAB8 PO; -LOSA25TA14 PO; -ONDA4TAB6 PO
[2019-10-07] MEDS ORDERED: GLIP5TAB8 PO (13:11)
[2019-10-07] MEDS ORDERED: LOSA25TA14 PO (13:11)
--- NOTE | 2019-10-07 13:39 | REP ---
Head CT without contrast: History: Head injury. Patient on blood thinners. Comparison study: Comparison CT brain September 04, 2012. CT findings: Bone window settings demonstrate an intact bony calvarium. There is no evidence of skull fracture or incidental bony calvarial lesion. The visualized paranasal sinuses appear clear. No intraorbital abnormality is seen. On soft tissue window setting images; the lateral, third, and fourth ventricles are normal in size and position. Perez-white differentiation pattern is normal above and below the tentorium. There are is no evidence of intracranial hemorrhage. No mass, edema, infarction, or midline shift is seen. No extra-axial fluid collection is appreciated. Impression: Negative noncontrast head CT. No evidence of skull fracture, scalp hematoma, or intracranial injury. Electronically Signed by Samuel Swanson MD 10/07/2019 01:31 P
[2019-10-07] MEDS ORDERED: ONDA4TAB6 PO (13:43)
[2019-10-07] MEDS ORDERED: ACET-908 PO (13:45)
--- NOTE | 2019-10-07 14:07 | REP ---
CT CERVICAL SPINE: CT cervical spine performed in the axial plane. Sagittal and coronal reconstruction images are performed. There is no compression fracture or malalignment. There is no prevertebral soft tissue swelling. There is mild spurring of C4 with moderate spurring of C5 and C6. There is mild spurring of C7. There is moderate disc space narrowing and mild subchondral sclerosis at C5-6 and C6-7. Uncovertebral spurring appears to cause a moderate degree of bilateral foraminal narrowing at C3-4 and C5-6. There appears to be some degree of spinal canal stenosis a C5-6. IMPRESSION: Degenerative changes with no evidence of fracture or dislocation. Electronically Signed by Can Perez MD 10/07/2019 04:51 P
== END 2019-10-07 13:58 | disposition home or self-care (01) ==
LOC: M ED 13:05
DX: S06.0X9A Concussion with loss of consciousness of unspecified duration, initial encounter (principal); W01.198A Fall on same level from slipping, tripping and stumbling with subsequent striking against other object, initial encounter; Y92.096 Garden or yard of other non-institutional residence as the place of occurrence of the external cause; Y93.H2 Activity, gardening and landscaping; I10 Essential (primary) hypertension; I48.91 Unspecified atrial fibrillation; E11.9 Type 2 diabetes mellitus without complications; F41.9 Anxiety disorder, unspecified; G47.33 Obstructive sleep apnea (adult) (pediatric); F17.200 Nicotine dependence, unspecified, uncomplicated; Z79.899 Other long term (current) drug therapy; Z79.84 Long term (current) use of oral hypoglycemic drugs; Z79.01 Long term (current) use of anticoagulants

== ENCOUNTER → 2019-10-07 | Outpatient (REF) | payer OTHER ==
[~2019-10-07] MED LIST changes: +ACET-908 PO; +GLIP5TAB8 PO; +LOSA25TA14 PO; +ONDA4TAB6 PO; -TRAM50TA2; +TRAM50TA2 PO
[2019-10-07 13:35] LABS: THYROID STIMULATING HORMONE 2.12 uIU/ML (0.358-3.740)
[2019-10-07 13:37] LABS: LUTEINIZING HORMONE 4.1 mIU/mL (1.5-9.3); PROLACTIN 5.2 NG/ML (2.1-17.7)
[2019-10-11 06:34] LABS: TESTOSTERONE %FREE+WEAKLY BOUN 40.7 % (9.0-46.0); TESTOSTERONE FREE+WEAKLY BOUND 70.8 ng/dL (40.0-250.0); TESTOSTERONE TOTAL 174 ng/dL (264-916)
== END ==
LOC: M LABDRWAD 12:40
PROVIDERS: ATTEND Nurse Practitioner Family
DX: E29.1 Testicular hypofunction (principal)

== ENCOUNTER → 2020-10-07 | Outpatient (REF) | payer OTHER ==
[~2020-10-07] MED LIST changes: +ACET-910 PO; +GLIP5TAB8 PO; -LISI-538; +LISI10TA22 PO; -LISI10TA4 PO; +LISI20TA33; +LOSA25TA14 PO; +ONDA4TAB6 PO
[2020-10-07 13:11] LABS: HEMATOCRIT 45.2 % (42.0-52.0); HEMOGLOBIN 14.8 g/dl (13.5-17.5); MEAN CORPUSCULAR HEMOGLOBIN 31.6 pg (27.0-33.0); MEAN CORPUSCULAR HGB CONC 32.7 g/dl (32.0-36.5); MEAN CORPUSCULAR VOLUME 96.6 fl (80.0-96.0); PLATELET COUNT, AUTOMATED 219 10^3/uL (150-450); RED BLOOD COUNT 4.68 10^6/uL (4.30-6.10); WHITE BLOOD COUNT 10.8 10^3/uL (4.0-10.0)
[2020-10-07 13:47] LABS: ALT/SGPT 49 U/L (12-78); BILIRUBIN,TOTAL 0.4 MG/DL (0.2-1.0); BLOOD UREA NITROGEN 13 MG/DL (7-18); CALCIUM LEVEL 9.3 MG/DL (8.8-10.2); CARBON DIOXIDE LEVEL 28 MEQ/L (21-32); CHLORIDE LEVEL 103 MEQ/L (98-107); CHOLESTEROL LEVEL 130 MG/DL (<200); CHOLESTEROL RISK RATIO 3.333 (<5); FREE T4 1.07 NG/DL (0.76-1.46); GLOMERULAR FILTRATION RATE > 60.0 (>49); GLUCOSE, FASTING 218 MG/DL (70-100); HDL CHOLESTEROL 39 MG/DL (>40); LDL CHOLESTEROL 63 MG/DL (<100); NON-HDL-C 91 MG/DL; POTASSIUM SERUM 4.9 MEQ/L (3.5-5.1); SODIUM LEVEL 137 MEQ/L (136-145); TRIGLYCERIDES LEVEL 139 MG/DL (<150)
[2020-10-07 14:09] LABS: MAU/CREAT RATIO 35.8 MCG/MG (0.0-30.0)
[2020-10-07 14:47] LABS: HEMOGLOBIN A1c 8.3 %
== END ==
LOC: M SFHCADAM 09:17
PROVIDERS: ATTEND Family Medicine
DX: E29.1 Testicular hypofunction (principal); E11.65 Type 2 diabetes mellitus with hyperglycemia; F43.22 Adjustment disorder with anxiety; E78.2 Mixed hyperlipidemia; Z12.5 Encounter for screening for malignant neoplasm of prostate

== ENCOUNTER → 2020-12-27 | Outpatient (CLI) | payer OTHER ==
[~2020-12-27] MED LIST changes: +LOSA25TA13 PO; -LOSA25TA14 PO
== END ==
LOC: M RAD 10:59
PROVIDERS: ATTEND Internal Medicine Pulmonary Disease
DX: Z12.2 Encounter for screening for malignant neoplasm of respiratory organs (principal); F17.218 Nicotine dependence, cigarettes, with other nicotine-induced disorders

== ENCOUNTER → 2021-04-20 | Outpatient (CLI) | payer OTHER | LOC: M LABSMTC 11:07 | PROVIDERS: ATTEND Pediatrics | DX: Z20.822 Contact with and (suspected) exposure to COVID-19 (principal) ==

== ENCOUNTER 2021-06-18 14:35 | Emergency (ER) | payer OTHER ==
[~2021-06-18] VITALS: Ht 177.8 cm; Wt 91.3 kg
[2021-06-18 19:15] VITALS: BP 122/83
== END 2021-06-18 21:06 | disposition home or self-care (01) ==
LOC: M ED 14:35
DX: I48.20 Chronic atrial fibrillation, unspecified (principal); R94.31 Abnormal electrocardiogram [ECG] [EKG]; E11.9 Type 2 diabetes mellitus without complications; I10 Essential (primary) hypertension; E78.5 Hyperlipidemia, unspecified; Z79.4 Long term (current) use of insulin; Z79.899 Other long term (current) drug therapy

== ENCOUNTER 2021-06-20 08:24 | Emergency (ER) | payer OTHER ==
[~2021-06-20] VITALS: Ht 177.8 cm; Wt 86.4 kg
[2021-06-20 12:14] VITALS: BP 123/79
[2021-06-20 16:15] VITALS: BP 126/81
== END 2021-06-20 16:46 | disposition home or self-care (01) ==
LOC: M ED 08:24
DX: I48.0 Paroxysmal atrial fibrillation (principal); U07.1 COVID-19; R94.31 Abnormal electrocardiogram [ECG] [EKG]; E11.9 Type 2 diabetes mellitus without complications; I10 Essential (primary) hypertension; I48.20 Chronic atrial fibrillation, unspecified; F17.200 Nicotine dependence, unspecified, uncomplicated

== ENCOUNTER → 2021-07-15 | Outpatient (REF) | payer OTHER ==
[2021-07-15 13:03] LABS: FOLATE 19.3 NG/ML (>5.4); TOTAL 25(OH) VITAMIN D 17.2 NG/ML (30.0-100.0)
[2021-07-15 13:04] LABS: ALT/SGPT 46 U/L (12-78); BILIRUBIN,TOTAL 0.4 MG/DL (0.2-1.0); BLOOD UREA NITROGEN 16 MG/DL (7-18); CALCIUM LEVEL 8.9 MG/DL (8.8-10.2); CARBON DIOXIDE LEVEL 24 MEQ/L (21-32); CHLORIDE LEVEL 107 MEQ/L (98-107); CHOLESTEROL LEVEL 144 MG/DL (<200); CHOLESTEROL RISK RATIO 3.512 (<5); CREATININE FOR GFR 1.05 MG/DL (0.70-1.30); CREATININE, URINE 56.8 MG/DL; FREE T4 1.14 NG/DL (0.76-1.46); GLOMERULAR FILTRATION RATE > 60.0 (>49); GLUCOSE, FASTING 169 MG/DL (70-100); HDL CHOLESTEROL 41 MG/DL (>40); LDL CHOLESTEROL 75 MG/DL (<100); MALB URINE SIEMENS 24.9 MG/L; MAU/CREAT RATIO 43.8 MCG/MG (0.0-30.0); NON-HDL-C 103 MG/DL; POTASSIUM SERUM 4.5 MEQ/L (3.5-5.1); SODIUM LEVEL 137 MEQ/L (136-145); TOTAL PROTEIN 7.6 GM/DL (6.4-8.2); TRIGLYCERIDES LEVEL 138 MG/DL (<150)
[2021-07-15 13:24] LABS: HEMOGLOBIN A1c 8.4 %
== END ==
LOC: M SFHCADAM 09:45
PROVIDERS: ATTEND Family Medicine
DX: E11.65 Type 2 diabetes mellitus with hyperglycemia (principal); E78.2 Mixed hyperlipidemia; I48.0 Paroxysmal atrial fibrillation

== ENCOUNTER → 2021-07-21 | Outpatient (REF) | payer OTHER ==
[2021-07-21 17:31] LABS: APPEARANCE, URINE CLEAR (CLEAR); BACTERIA, URINE AUTO NEGATIVE (NEGATIVE); BILIRUBIN, URINE AUTO NEGATIVE (NEGATIVE); BLOOD, URINE BLOOD NEGATIVE (NEGATIVE); COLOR, URINE YELLOW (YELLOW); GLUCOSE, URINE (UA) AUTO 3+ mg/dL (NEGATIVE); KETONE, URINE AUTO NEGATIVE (NEGATIVE); LEUKOCYTE ESTERASE, URINE AUTO NEGATIVE (NEGATIVE); MUCUS, URINE SMALL (NEGATIVE); NITRITE, URINE AUTO NEGATIVE (NEGATIVE); PROTEIN, URINE AUTO NEGATIVE (NEGATIVE); RBC, URINE AUTO 0 /HPF (0-3); SPECIFIC GRAVITY URINE AUTO 1.028 (1.002-1.035); SQUAMOUS EPITHELIAL CELL UR AU 0 /HPF (0-6); UROBILINOGEN, URINE AUTO 0.2 mg/dL (0.0-2.0); WBC, URINE AUTO 0 /HPF (0-3)
== END ==
LOC: M SFHCADAM 11:55
PROVIDERS: ATTEND Family Medicine
DX: R31.9 Hematuria, unspecified (principal)

== ENCOUNTER → 2021-09-21 | Outpatient (CLI) | payer OTHER ==
[2021-09-21 13:45] LABS: BLOOD UREA NITROGEN 18 MG/DL (7-18); CALCIUM LEVEL 9.9 MG/DL (8.8-10.2); CARBON DIOXIDE LEVEL 25 MEQ/L (21-32); CHLORIDE LEVEL 103 MEQ/L (98-107); GLOMERULAR FILTRATION RATE > 60.0 (>49); GLUCOSE, FASTING 248 MG/DL (70-100); POTASSIUM SERUM 4.8 MEQ/L (3.5-5.1); SODIUM LEVEL 136 MEQ/L (136-145)
== END ==
LOC: M ADAMS 10:56
PROVIDERS: ATTEND Internal Medicine Cardiovascular Disease
DX: I48.0 Paroxysmal atrial fibrillation (principal)

== ENCOUNTER 2021-10-06 23:52 | Emergency (ER) | payer OTHER ==
[~2021-10-06] VITALS: Ht 177.8 cm; Wt 86.4 kg
[2021-10-07] MEDS ORDERED: STEG15TA PO (00:13)
[2021-10-07] MEDS ORDERED: ISOVUE-370 76% 100ML VIAL As Ordered ONE (00:27)
[2021-10-07 00:44] LABS: BASO # 0.1 10^3/uL (0.0-0.2); BASO % 0.7 % (0.0-1.0); EOS # 0.3 10^3/uL (0.0-0.5); EOS % 1.7 % (0.0-3.0); HEMATOCRIT 41.2 % (42.0-52.0); HEMOGLOBIN 13.9 g/dl (13.5-17.5); LYMPH # 4.8 10^3/uL (1.5-5.0); MEAN CORPUSCULAR HGB CONC 33.7 g/dl (32.0-36.5); MEAN CORPUSCULAR VOLUME 94.7 fl (80.0-96.0); MONO # 1.5 10^3/uL (0.0-0.8); MONO % 9.6 % (2.0-8.0); NEUTROPHILS # 8.7 10^3/uL (1.5-8.5); NEUTROPHILS % 56.7 % (36.0-66.0); PLATELET COUNT, AUTOMATED 229 10^3/uL (150-450); RED BLOOD COUNT 4.35 10^6/uL (4.30-6.10); WHITE BLOOD COUNT 15.4 10^3/uL (4.0-10.0)
[2021-10-07 00:56] LABS: INR 1.08; PROTHROMBIN TIME 14.4 SECONDS (12.7-14.5)
[2021-10-07 01:19] LABS: ERYTHROCYTE SEDIMENTATION RATE 47 mm/hr (0-20)
[2021-10-07 01:20] LABS: CK-MB VALUE MASS 2.4 NG/ML (<3.6); MB/CK RELATIVE INDEX 1.53 (< OR =4)
[2021-10-07 01:21] LABS: ALBUMIN 3.3 GM/DL (3.2-5.2); ALT/SGPT 32 U/L (12-78); BILIRUBIN,DIRECT < 0.1 MG/DL (0.0-0.2); BILIRUBIN,TOTAL 0.3 MG/DL (0.2-1.0); BLOOD UREA NITROGEN 25 MG/DL (7-18); CALCIUM LEVEL 8.8 MG/DL (8.8-10.2); CARBON DIOXIDE LEVEL 23 MEQ/L (21-32); CHLORIDE LEVEL 107 MEQ/L (98-107); GLOMERULAR FILTRATION RATE > 60.0 (>49); GLUCOSE, FASTING 148 MG/DL (70-100); NT-PRO BNP 497 PG/ML (<125); POTASSIUM SERUM 3.9 MEQ/L (3.5-5.1); SODIUM LEVEL 139 MEQ/L (136-145); TOTAL PROTEIN 6.8 GM/DL (6.4-8.2)
[2021-10-07 02:13] LABS: CK-MB VALUE MASS 2.2 NG/ML (<3.6); MB/CK RELATIVE INDEX 1.37 (< OR =4)
[2021-10-07 02:46] VITALS: BP 143/95
== END 2021-10-07 03:41 | disposition left against medical advice (07) ==
LOC: M ED 23:52
DX: R07.9 Chest pain, unspecified (principal); E11.9 Type 2 diabetes mellitus without complications; E78.5 Hyperlipidemia, unspecified; F17.200 Nicotine dependence, unspecified, uncomplicated; Z86.79 Personal history of other diseases of the circulatory system; Z79.01 Long term (current) use of anticoagulants; Z79.899 Other long term (current) drug therapy; Z53.21 Procedure and treatment not carried out due to patient leaving prior to being seen by health care provider
CPT/HCPCS: 71045; 71275; 80047; 80048; 80076; 82550; 82553; 83880; 84443; 85025; 85610; 85652; 85730; 86140; 93005; 93041; 94760; 99284; Q9967

== ENCOUNTER → 2021-10-25 | Outpatient (REF) | payer OTHER ==
[~2021-10-25] MED LIST changes: +STEG15TA PO
[2021-10-25 13:25] LABS: BLOOD UREA NITROGEN 15 MG/DL (7-18); CALCIUM LEVEL 9.1 MG/DL (8.8-10.2); CARBON DIOXIDE LEVEL 23 MEQ/L (21-32); CHLORIDE LEVEL 106 MEQ/L (98-107); CREATININE FOR GFR 1.25 MG/DL (0.70-1.30); GLOMERULAR FILTRATION RATE > 60.0 (>49); GLUCOSE, FASTING 242 MG/DL (70-100); POTASSIUM SERUM 4.6 MEQ/L (3.5-5.1); SODIUM LEVEL 136 MEQ/L (136-145)
[2021-10-25 13:40] LABS: HEMOGLOBIN A1c 7.6 %
== END ==
LOC: M SFHCADAM 10:57
PROVIDERS: ATTEND Family Medicine
DX: E11.65 Type 2 diabetes mellitus with hyperglycemia (principal); E55.9 Vitamin D deficiency, unspecified

== ENCOUNTER → 2022-02-08 | Outpatient (REF) | payer OTHER | LOC: M SFHCADAM 11:57 | PROVIDERS: ATTEND Family Medicine | DX: Z53.20 Procedure and treatment not carried out because of patient's decision for unspecified reasons (principal) ==

== ENCOUNTER → 2022-02-14 | Outpatient (REF) | payer OTHER ==
[2022-02-14 16:23] LABS: HEMATOCRIT 50.8 % (42.0-52.0); HEMOGLOBIN 16.4 g/dl (13.5-17.5); MEAN CORPUSCULAR HEMOGLOBIN 31.9 pg (27.0-33.0); MEAN CORPUSCULAR HGB CONC 32.3 g/dl (32.0-36.5); MEAN CORPUSCULAR VOLUME 98.8 fl (80.0-96.0); PLATELET COUNT, AUTOMATED 225 10^3/uL (150-450); RED BLOOD COUNT 5.14 10^6/uL (4.30-6.10); WHITE BLOOD COUNT 10.7 10^3/uL (4.0-10.0)
[2022-02-14 16:58] LABS: HEMOGLOBIN A1c 8.1 %
[2022-02-14 17:12] LABS: ALBUMIN 4.2 GM/DL (3.2-5.2); ALT/SGPT 45 U/L (12-78); BILIRUBIN,TOTAL 0.4 MG/DL (0.2-1.0); BLOOD UREA NITROGEN 17 MG/DL (7-18); CALCIUM LEVEL 9.4 MG/DL (8.8-10.2); CARBON DIOXIDE LEVEL 29 MEQ/L (21-32); CHLORIDE LEVEL 102 MEQ/L (98-107); CHOLESTEROL LEVEL 134 MG/DL (<200); CHOLESTEROL RISK RATIO 3.435 (<5); CREATININE FOR GFR 1.17 MG/DL (0.70-1.30); FREE T4 1.42 NG/DL (0.76-1.46); GLOMERULAR FILTRATION RATE > 60.0 (>49); GLUCOSE, FASTING 232 MG/DL (70-100); HDL CHOLESTEROL 39 MG/DL (>40); LDL CHOLESTEROL 48 MG/DL (<100); NON-HDL-C 95 MG/DL; POTASSIUM SERUM 5.3 MEQ/L (3.5-5.1); SODIUM LEVEL 137 MEQ/L (136-145); TOTAL PROTEIN 7.7 GM/DL (6.4-8.2); TRIGLYCERIDES LEVEL 237 MG/DL (<150)
[2022-02-14 17:43] LABS: TOTAL 25(OH) VITAMIN D 22.8 NG/ML (30.0-100.0); VITAMIN B12 LEVEL 573 PG/ML (247-911)
[2022-02-16 08:12] LABS: FOLATE 19.1 ng/mL (>3.0)
== END ==
LOC: M SFHCADAM 10:27
PROVIDERS: ATTEND Family Medicine
DX: E11.65 Type 2 diabetes mellitus with hyperglycemia (principal); E55.9 Vitamin D deficiency, unspecified; R53.83 Other fatigue

== ENCOUNTER 2022-03-26 20:55 | Emergency (ER) | payer OTHER ==
[~2022-03-26] VITALS: Ht 177.8 cm; Wt 88.6 kg
[2022-03-26] MEDS ORDERED: FLECAINIDE 50MG TABLET PO ONE (21:20)
[2022-03-26 21:58] LABS: HEMATOCRIT 46.3 % (42.0-52.0); HEMOGLOBIN 15.6 g/dl (13.5-17.5); MEAN CORPUSCULAR HEMOGLOBIN 31.7 pg (27.0-33.0); MEAN CORPUSCULAR HGB CONC 33.7 g/dl (32.0-36.5); MEAN CORPUSCULAR VOLUME 94.1 fl (80.0-96.0); PLATELET COUNT, AUTOMATED 271 10^3/uL (150-450); RED BLOOD COUNT 4.92 10^6/uL (4.30-6.10); WHITE BLOOD COUNT 12.4 10^3/uL (4.0-10.0)
[2022-03-26 22:20] LABS: ATYPICAL LYMPH 2 % (0-5); LYMPHOCYTES 39 % (16-44); MONOCYTES 5 % (0-5); NEUTROPHILS 54 % (28-66); PLATELET ESTIMATE NORMAL (NORMAL)
[2022-03-26 22:27] LABS: RSV AMPLIFICATION NEGATIVE (NEGATIVE)
[2022-03-26 22:40] LABS: BLOOD UREA NITROGEN 20 MG/DL (7-18); CALCIUM LEVEL 9.1 MG/DL (8.8-10.2); CARBON DIOXIDE LEVEL 26 MEQ/L (21-32); CHLORIDE LEVEL 105 MEQ/L (98-107); CREATININE FOR GFR 1.24 MG/DL (0.70-1.30); GLOMERULAR FILTRATION RATE > 60.0 (>49); GLUCOSE, FASTING 149 MG/DL (70-100); MAGNESIUM LEVEL 2.3 MG/DL (1.8-2.4); POTASSIUM SERUM 4.1 MEQ/L (3.5-5.1); SODIUM LEVEL 136 MEQ/L (136-145)
[2022-03-26] MEDS: METOPROLOL 5 MG/5 ML VIAL IV SCH ×3 (22:53→23:25)
[2022-03-26] MEDS ORDERED: METOPROLOL TART 25 MG TABLET PO ONE (23:00)
[2022-03-26 23:25] VITALS: BP 120/73
[2022-03-27] MEDS ORDERED: ALPRAZolam 0.5 MG TAB PO ONE
[2022-03-27] MEDS ORDERED: METO1TAB32 PO (00:14)
[2022-03-27 00:49] VITALS: BP 139/72
== END 2022-03-27 00:50 | disposition home or self-care (01) ==
LOC: M ED 20:55
DX: I48.0 Paroxysmal atrial fibrillation (principal); I44.4 Left anterior fascicular block; E11.9 Type 2 diabetes mellitus without complications; F32.A Depression, unspecified; F17.200 Nicotine dependence, unspecified, uncomplicated; F10.10 Alcohol abuse, uncomplicated; Z86.79 Personal history of other diseases of the circulatory system; Z79.01 Long term (current) use of anticoagulants; Z79.4 Long term (current) use of insulin; Z79.899 Other long term (current) drug therapy

== ENCOUNTER 2022-07-31 20:04 | Emergency (ER) | payer OTHER ==
[~2022-07-31] VITALS: Ht 177.8 cm; Wt 89.9 kg
[~2022-07-31 20:04] MED LIST changes: +METO1TAB32 PO
[2022-07-31 20:05] VITALS: BP 132/80
[2022-07-31] MEDS ORDERED: ATOR1TAB19 PO (20:15)
== END 2022-07-31 21:18 | disposition left against medical advice (07) ==
LOC: M ED 20:04
DX: Z53.21 Procedure and treatment not carried out due to patient leaving prior to being seen by health care provider (principal)

== ENCOUNTER 2022-08-01 11:42 | Emergency (ER) | payer OTHER ==
[~2022-08-01] VITALS: Ht 177.8 cm; Wt 90.2 kg
[~2022-08-01 11:42] MED LIST changes: +ATOR1TAB19 PO
[2022-08-01] MEDS ORDERED: NS 1,000 ML IV ONE (12:15)
[2022-08-01 12:25] LABS: VENOUS BASE EXCESS -3.6 (-2.0-2.0); VENOUS HCO3 21.8 MEQ/L (23.0-27.0); VENOUS O2 SATURATION 76.5 % (60.0-80.0); VENOUS PH 7.344 UNITS (7.330-7.430); VENOUS STANDARD HCO3 20.9 MEQ/L; VENOUS TOTAL CO2 23.1 MEQ/L (24.0-28.0)
[2022-08-01 12:44] LABS: BASO # 0.1 10^3/uL (0.0-0.2); EOS # 0.1 10^3/uL (0.0-0.5); EOS % 1.4 % (0.0-3.0); HEMATOCRIT 48.5 % (42.0-52.0); HEMOGLOBIN 16.2 g/dl (13.5-17.5); LYMPH # 2.3 10^3/uL (1.5-5.0); LYMPH % 23.3 % (24.0-44.0); MEAN CORPUSCULAR HGB CONC 33.4 g/dl (32.0-36.5); MEAN CORPUSCULAR VOLUME 95.7 fl (80.0-96.0); MONO # 0.7 10^3/uL (0.0-0.8); MONO % 6.6 % (2.0-8.0); NEUTROPHILS # 6.8 10^3/uL (1.5-8.5); NEUTROPHILS % 67.4 % (36.0-66.0); PLATELET COUNT, AUTOMATED 253 10^3/uL (150-450); RED BLOOD COUNT 5.07 10^6/uL (4.30-6.10)
[2022-08-01 12:58] LABS: LIPASE 37 U/L (12-53)
[2022-08-01 13:04] LABS: ALBUMIN 4.2 G/DL (3.2-5.2); ALKALINE PHOSPHATASE 86 U/L (46-116); ALT/SGPT 34 U/L (7.0-40); AST/SGOT 27 U/L (<34); BILIRUBIN,TOTAL 0.6 MG/DL (0.3-1.2); BLOOD UREA NITROGEN 19 MG/DL (9-23); CALCIUM LEVEL 8.9 MG/DL (8.3-10.6); CARBON DIOXIDE LEVEL 24 MMOL/L (20-31); CHLORIDE LEVEL 102 MMOL/L (98-107); CREATININE FOR GFR 0.88 MG/DL (0.70-1.30); GLOMERULAR FILTRATION RATE > 60.0 (>49); GLUCOSE, FASTING 225 MG/DL (74-106); POTASSIUM SERUM 4.2 MMOL/L (3.5-5.1); SODIUM LEVEL 135 MMOL/L (136-145); TOTAL PROTEIN 7.6 G/DL (5.7-8.2)
[2022-08-01 13:11] LABS: OSMOLALITY SERUM 301 MOSM/KG (280-301)
[2022-08-01 13:57] LABS: HEMOGLOBIN A1c 8.4 % (4.0-6.0)
[2022-08-01 14:25] VITALS: BP 143/74
== END 2022-08-01 14:28 | disposition home or self-care (01) ==
LOC: M ED 11:42
DX: E11.65 Type 2 diabetes mellitus with hyperglycemia (principal); I44.4 Left anterior fascicular block; I10 Essential (primary) hypertension; K21.9 Gastro-esophageal reflux disease without esophagitis; E78.5 Hyperlipidemia, unspecified; Z86.79 Personal history of other diseases of the circulatory system; Z79.84 Long term (current) use of oral hypoglycemic drugs; Z79.01 Long term (current) use of anticoagulants; Z79.899 Other long term (current) drug therapy

== ENCOUNTER → 2022-11-09 | Outpatient (REF) | payer OTHER ==
[2022-11-09 17:02] LABS: ALBUMIN 4.3 G/DL (3.2-5.2); ALKALINE PHOSPHATASE 90 U/L (46-116); ALT/SGPT 34 U/L (7.0-40); AST/SGOT 19 U/L (<34); BILIRUBIN,TOTAL 0.5 MG/DL (0.3-1.2); BLOOD UREA NITROGEN 17 MG/DL (9-23); CARBON DIOXIDE LEVEL 27 MMOL/L (20-31); CHLORIDE LEVEL 104 MMOL/L (98-107); CHOLESTEROL LEVEL 127 MG/DL (<200); CHOLESTEROL RISK RATIO 3.21 (<5); CREATININE FOR GFR 1.03 MG/DL (0.70-1.30); GLOMERULAR FILTRATION RATE > 60.0 (>49); GLUCOSE, FASTING 103 MG/DL (74-106); HDL CHOLESTEROL 39.5 MG/DL (>40); HEMATOCRIT 50.1 % (42.0-52.0); HEMOGLOBIN 16.2 g/dl (13.5-17.5); LDL CHOLESTEROL 56.5 MG/DL (<100); MEAN CORPUSCULAR HEMOGLOBIN 31.3 pg (27.0-33.0); MEAN CORPUSCULAR HGB CONC 32.3 g/dl (32.0-36.5); MEAN CORPUSCULAR VOLUME 96.9 fl (80.0-96.0); NON-HDL-C 87.5 MG/DL; PLATELET COUNT, AUTOMATED 245 10^3/uL (150-450); POTASSIUM SERUM 4.9 MMOL/L (3.5-5.1); RED BLOOD COUNT 5.17 10^6/uL (4.30-6.10); SODIUM LEVEL 139 MMOL/L (136-145); TOTAL PROTEIN 7.3 G/DL (5.7-8.2); TRIGLYCERIDES LEVEL 155 MG/DL (<150); WHITE BLOOD COUNT 11.6 10^3/uL (4.0-10.0)
[2022-11-09 17:03] LABS: FREE T4 1.01 NG/DL (0.89-1.76); THYROID STIMULATING HORMONE 1.532 uIU/ML (0.55-4.78)
[2022-11-09 17:04] LABS: VITAMIN B12 LEVEL 458 PG/ML (211-911)
[2022-11-09 17:06] LABS: FOLATE 15.73 NG/ML (>5.4)
[2022-11-09 17:09] LABS: HEMOGLOBIN A1c 6.3 % (4.0-6.0)
[2022-11-11 17:09] LABS: TESTOSTERONE FREE (DIRECT) 3.7 pg/mL (6.6-18.1)
== END ==
LOC: M SFHCADAM 11:55
PROVIDERS: ATTEND Family Medicine
DX: R53.83 Other fatigue (principal); E11.65 Type 2 diabetes mellitus with hyperglycemia; E78.2 Mixed hyperlipidemia; E29.1 Testicular hypofunction

== ENCOUNTER → 2023-08-17 | Outpatient (REF) | payer OTHER ==
[~2023-08-17] MED LIST changes: +GLIP5TAB17 PO; -GLIP5TAB8 PO
[2023-08-17 13:17] LABS: HEMATOCRIT 51.7 % (42.0-52.0); HEMOGLOBIN 16.9 g/dl (13.5-17.5); MEAN CORPUSCULAR HGB CONC 32.7 g/dl (32.0-36.5); MEAN CORPUSCULAR VOLUME 97.9 fl (80.0-96.0); PLATELET COUNT, AUTOMATED 250 10^3/uL (150-450); RED BLOOD COUNT 5.28 10^6/uL (4.30-6.10); WHITE BLOOD COUNT 11.8 10^3/uL (4.0-10.0)
[2023-08-17 13:45] LABS: PSA SCREENING 0.13 NG/ML (< 4.00)
[2023-08-17 13:49] LABS: THYROID STIMULATING HORMONE 2.932 uIU/ML (0.55-4.78)
[2023-08-17 13:50] LABS: ALBUMIN 4.1 G/DL (3.2-5.2); ALKALINE PHOSPHATASE 83 U/L (46-116); ALT/SGPT 26 U/L (7.0-40); AST/SGOT 16 U/L (<34); BILIRUBIN,TOTAL 0.5 MG/DL (0.3-1.2); BLOOD UREA NITROGEN 17 MG/DL (9-23); CALCIUM LEVEL 9.4 MG/DL (8.3-10.6); CARBON DIOXIDE LEVEL 28 MMOL/L (20-31); CHLORIDE LEVEL 105 MMOL/L (98-107); CHOLESTEROL LEVEL 128 MG/DL (<200); CHOLESTEROL RISK RATIO 4.03 (<5); CREATININE FOR GFR 0.97 MG/DL (0.70-1.30); FREE T4 1.18 NG/DL (0.89-1.76); GLOMERULAR FILTRATION RATE > 60.0 (>49); GLUCOSE, FASTING 130 MG/DL (74-106); HDL CHOLESTEROL 31.7 MG/DL (>40); LDL CHOLESTEROL 65.1 MG/DL (<100); NON-HDL-C 96.3 MG/DL; SODIUM LEVEL 140 MMOL/L (136-145); TOTAL PROTEIN 7.3 G/DL (5.7-8.2); TRIGLYCERIDES LEVEL 156 MG/DL (<150)
[2023-08-17 13:52] LABS: TESTOSTERONE 150 NG/DL (241-827)
[2023-08-17 13:53] LABS: HEMOGLOBIN A1c 6.3 % (4.0-6.0)
== END ==
LOC: M SFHCADAM 09:35
PROVIDERS: ATTEND Family Medicine
DX: E78.2 Mixed hyperlipidemia (principal); E11.65 Type 2 diabetes mellitus with hyperglycemia; F41.8 Other specified anxiety disorders; E34.9 Endocrine disorder, unspecified; Z12.5 Encounter for screening for malignant neoplasm of prostate

== ENCOUNTER → 2024-04-03 | Outpatient (CLI) | payer OTHER ==
[~2024-04-03] MED LIST changes: +ONDA-282 PO; -ONDA4TAB6 PO
== END ==
LOC: M RAD 16:50
PROVIDERS: ATTEND Family Medicine
DX: Z12.2 Encounter for screening for malignant neoplasm of respiratory organs (principal); F17.210 Nicotine dependence, cigarettes, uncomplicated; R91.8 Other nonspecific abnormal finding of lung field

== ENCOUNTER → 2024-04-07 | Outpatient (REF) | payer OTHER ==
[2024-04-07 14:48] LABS: ALBUMIN 4.2 G/DL (3.2-5.2); ALKALINE PHOSPHATASE 85 U/L (40-129); ALT/SGPT 54 U/L (7.0-40); AST/SGOT 30 U/L (<34); BILIRUBIN,TOTAL 0.5 MG/DL (0.3-1.2); BLOOD UREA NITROGEN 16 MG/DL (9-23); CALCIUM LEVEL 9.9 MG/DL (8.3-10.6); CARBON DIOXIDE LEVEL 30 MMOL/L (20-31); CHLORIDE LEVEL 104 MMOL/L (98-107); CHOLESTEROL LEVEL 180 MG/DL (<200); CHOLESTEROL RISK RATIO 4.52 (<5); CREATININE FOR GFR 0.92 MG/DL (0.70-1.30); GLOMERULAR FILTRATION RATE > 60.0 (>49); GLUCOSE, FASTING 141 MG/DL (74-106); HDL CHOLESTEROL 39.8 MG/DL (>40); LDL CHOLESTEROL 105.8 MG/DL (<100); NON-HDL-C 140.2 MG/DL; SODIUM LEVEL 140 MMOL/L (136-145); TOTAL PROTEIN 7.9 G/DL (5.7-8.2); TRIGLYCERIDES LEVEL 172 MG/DL (<150)
[2024-04-07 14:49] LABS: HEMATOCRIT 50.1 % (42.0-52.0); HEMOGLOBIN 16.3 g/dl (13.5-17.5); MEAN CORPUSCULAR HEMOGLOBIN 31.8 pg (27.0-33.0); MEAN CORPUSCULAR HGB CONC 32.5 g/dl (32.0-36.5); MEAN CORPUSCULAR VOLUME 97.9 fl (80.0-96.0); PLATELET COUNT, AUTOMATED 253 10^3/uL (150-450); RED BLOOD COUNT 5.12 10^6/uL (4.30-6.10)
[2024-04-07 14:50] LABS: TESTOSTERONE 180 NG/DL (241-827)
[2024-04-07 15:48] LABS: HEMOGLOBIN A1c 6.8 % (4.0-6.0)
== END ==
LOC: M SFHCADAM 09:39
PROVIDERS: ATTEND Family Medicine
DX: E34.9 Endocrine disorder, unspecified (principal); E11.65 Type 2 diabetes mellitus with hyperglycemia; E78.2 Mixed hyperlipidemia; I48.0 Paroxysmal atrial fibrillation

== ENCOUNTER 2025-01-29 19:05 | Emergency (ER) | payer MEDICARE, OTHER ==
[~2025-01-29] VITALS: Ht 177.8 cm; Wt 88.6 kg
[2025-01-29 19:08] VITALS: BP 153/73; TEMP 97.3; O2SAT 96
== END 2025-01-29 21:17 | disposition left against medical advice (07) ==
LOC: M ED 19:05
DX: Z53.21 Procedure and treatment not carried out due to patient leaving prior to being seen by health care provider (principal)